=== PATIENT | female | born 2000 | race Caucasian/White ===

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

== ENCOUNTER 2019-10-03 16:43 | Emergency (ER) | payer SELFPAY ==
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
[2019-10-03 19:42] VITALS: BP 133/84
== END 2019-10-03 19:41 | disposition home or self-care (01) ==
LOC: ED 16:43
DX: M54.2 Cervicalgia (principal); M25.511 Pain in right shoulder; R07.81 Pleurodynia; V43.52XA Car driver injured in collision with other type car in traffic accident, initial encounter; Y92.410 Unspecified street and highway as the place of occurrence of the external cause
CPT/HCPCS: 99281